=== PATIENT | female | born 1970 | race Caucasian/White ===

== ENCOUNTER 2018-12-01 14:50 | Emergency (ER) | payer MEDICARE, MEDICAID, SELFPAY ==
[2018-12-01] VITALS (28 sets, daily range): BP systolic 136–189; BP diastolic 57–134; PULSE 79–85; RESP 10–21; TEMP 36.6; O2SAT 66–99
--- NOTE | 2018-12-01 15:08 | W.ED.GENAD ---
Discharge Plan Disposition Patient Disposition: HOME Condition: Improving Discharge Details Chief Complaint: Dizzy/Sync Clinical Impression: Nausea in adult Reason For Visit: ESTHER Primary Care Provider: Chaitanya Quintero ED Provider: Chaitanya Brooks Home Meds and New Rx's Prescriptions: Continued atorvastatin 40 mg Tablet 40 mg PO DAILY RF: 0 carvedilol 12.5 mg Tablet 2 tab PO BID RF: 0 loperamide 2 mg Capsule 2 mg PO QID RF: 0 ondansetron HCl 4 mg Tablet 4 mg PO QID PRNRF: 0 sertraline 100 mg Tablet 100 mg PO DAILY RF: 0 acetaminophen [Acetaminophen Extra Strength] 500 mg Tablet 1,000 mg PO Q6H PRNRF: 0 amlodipine 10 mg Tablet 10 mg PO DAILY RF: 0 pantoprazole 40 mg Tablet,Delayed Release (Dr/Ec) 40 mg PO DAILY RF: 0 Glucagon Emergency Kit (human) 1 mg Recon Soln 1 mg SUBCUT ONCE RF: 0 gabapentin 300 mg Capsule 300 mg PO BID RF: 0 metoclopramide HCl [Reglan] 10 mg Tablet 10 mg PO BID RF: 0 Humalog KwikPen Insulin 100 unit/mL Insulin Pen 2 - 10 unit SUBCUT TID RF: 0 calcium acetate 667 mg Capsule 667 mg PO BID RF: 0 Basaglar KwikPen U-100 Insulin 100 unit/mL (3 mL) Insulin Pen 12 unit SUBCUT HS RF: 0 Discharge Instructions Instructions: Acute Nausea and Vomiting (ED) Additional Instructions: May use your prescribed Reglan or Zofran as needed for nausea. Home to rest today. Small, frequent sips of fluids. Your sodium was slightly low as we discussed and you may liberalize salt in the diet over the next 24 hours. Follow-up for dialysis on Saturday as planned. Return to the emergency department for any acute concern in the interim. Medical Decision Making 48-year-old female on thrice weekly dialysis, presents after having nausea and 2 episodes of clear, nonbloody, nonbilious emesis. She had completed her run of dialysis and had a completion of an iron infusion when the emesis started. She was given Tylenol for mild headache and Zofran. She is improved for the time of arrival. She is slightly hypertensive but afebrile, stating she feels improved. Her abdomen is soft. Screening laboratories and EKG obtained. CBC is reassuring. Her chemistries notable for borderline low sodium of 135. She is improved and feeling better. I feel it is reasonable for her to liberalize salt in the diet and to follow-up with dialysis on Saturday. She understands return precautions to the ER. Lab Data Lab results reviewed: Yes I reviewed the patient's lab results. Laboratory Results - last 24 hr 12/01/18 12/01/18 15:30 15:30 WBC 5.36 RBC 3.63 L Hgb 11.4 L Hct 33.4 L MCV 92.0 MCH 31.4 MCHC 34.1 RDW 13.5 Plt Count 293 MPV 9.5 Immature Gran % 0.2 Neutrophils % 71.9 Lymphocytes % 19.0 Monocytes % 6.2 Eosinophils % 2.1 Basophils % 0.6 Absolute Neutrophils 3.86 Absolute Lymphocytes 1.02 L Absolute Monocytes 0.33 Absolute Eosinophils 0.11 Absolute Basophils 0.03 Sodium 135 L Potassium 3.8 Chloride 95 L Carbon Dioxide 34.2 H Anion Gap 5.8 BUN 20 H Creatinine 2.59 H Estimated GFR/1.73 m2 19.57 Glucose 226 H Calcium 8.3 L Total Bilirubin 0.5 AST 16 ALT 15 Alkaline Phosphatase 125 H Total Protein 8.0 Albumin 2.8 L ECG Data Attestation: I personally reviewed and interpreted this ECG (s) as follows: Interpretation: Normal sinus rhythm, rate is 80, the QRS is narrow, there is J-point elevation in leads V1 and V2. There is no ST segment elevation, no ST segment depression HPI General Mode of arrival: EMS. Date/Time Provider Initiated Documentation: 12/01/18 14:56. Limitations to Documentation: no limitations. Information obtained by: patient. History of Present Illness 48 year old F presents to the emergency department with the chief complaint of 48-year-old female with nausea and 2 episodes of clear emesis after dialysi, Quality is described as dull, and is localized to the abdomen. Patient reports no radiation. Patient started experiencing this minute(s) and it has been now resolved. No relieving factors improve symptom(s), No exacerbating factors reported . Patient notes headaches, loss of appetite and nausea/vomiting; denies chest pain and syncope. Patient did receive the following treatments prior to arrival, other (Tylenol and Zofran. Completed her iron infusion) Related Data Home Medications Medication Instructions Recorded Confirmed Aleyda Moore-100 Insulin 12 unit SUBCUT HS 12/01/18 12/01/18 Glucagon Emergency Kit (human) 1 mg SUBCUT ONCE 12/01/18 12/01/18 Humalog KwikPen Insulin 2 - 10 unit SUBCUT TID 12/01/18 12/01/18 acetaminophen [Acetaminophen Extra 1,000 mg PO Q6H PRN 12/01/18 12/01/18 Strength] amlodipine 10 mg PO DAILY 12/01/18 12/01/18 atorvastatin 40 mg PO DAILY 12/01/18 12/01/18 calcium acetate 667 mg PO BID 12/01/18 12/01/18 carvedilol 2 tab PO BID 12/01/18 12/01/18 gabapentin 300 mg PO BID 12/01/18 12/01/18 loperamide 2 mg PO QID 12/01/18 12/01/18 metoclopramide HCl [Reglan] 10 mg PO BID 12/01/18 12/01/18 ondansetron HCl 4 mg PO QID PRN 12/01/18 12/01/18 pantoprazole 40 mg PO DAILY 12/01/18 12/01/18 sertraline 100 mg PO DAILY 12/01/18 12/01/18 Allergies Allergy/AdvReac Type Severity Reaction Status Date / Time metformin AdvReac Diarrhea Uncoded 12/01/18 15:01 General Stated Complaint: Nausea/Vomit/Diar RICHARD: 3 Review of Systems Review of Systems 6 systems reviewed and otherwise negative [facility] Social History Smoking and Tabacco status: Never Exam Narrative Exam Narrative: GEN: awake, alert, oriented 3. Pleasant, well groomed, interactive. HEAD: Normocephalic, atraumatic ENT: Mucous membranes moist, oropharynx unremarkable, External ear exam unremarkable EYES: PERRL, EOMI NECK: Full ROM, no VIDAL, no menigismus CHEST/RESP: Nontender, clear to auscultation bilateral, no wheeze/rhonchi/rales CARDIOVASCULAR: RRR, no murmur, rub alejandro. 2+ Rad pulse bilateral ABDOMEN: Soft, nontender, no mass. +Bowel sounds EXT: Full ROM, no edema, no rash. Right upper extremity fistula with positive thrill, depressed, no bleeding. Neuro: Grossly normal neurologic exam, conversant, interactive. Psych: Speech fluent, thoughts congruent, affect normal Course Vital Signs Temperature 36.6 C 12/01/18 14:56 Pulse 82 12/01/18 14:56 Respiratory Rate 16 12/01/18 14:56 Blood Pressure 186/64 H 12/01/18 14:56 Pulse Oximetry 94 L 12/01/18 14:56 Temperature 36.6 C 12/01/18 14:56 Temperature Source Skin 12/01/18 14:56 Pulse 82 12/01/18 14:56 Respiratory Rate 16 12/01/18 14:56 Respiratory Effort Non-Labored 12/01/18 14:56 Blood Pressure 186/64 H 12/01/18 14:56 Blood Pressure Position Supine 12/01/18 14:56 Pulse Oximetry 94 L 12/01/18 14:56 Oxygen Delivery Method Room Air 12/01/18 14:56 Oxygen Flow Rate 0 12/01/18 14:56 Pain Level 5 12/01/18 14:56
--- NOTE | 2018-12-01 15:11 | ED.GENADUL_ITS ---
Discharge Plan Disposition Patient Disposition: HOME Condition: Improving Discharge Details Chief Complaint: Dizzy/Sync Clinical Impression: Nausea in adult Reason For Visit: ESTHER Primary Care Provider: Chaitanya Quintero ED Provider: Chaitanya Brooks Home Meds and New Rx's Prescriptions: Continued atorvastatin 40 mg Tablet 40 mg PO DAILY RF: 0 carvedilol 12.5 mg Tablet 2 tab PO BID RF: 0 loperamide 2 mg Capsule 2 mg PO QID RF: 0 ondansetron HCl 4 mg Tablet 4 mg PO QID PRNRF: 0 sertraline 100 mg Tablet 100 mg PO DAILY RF: 0 acetaminophen [Acetaminophen Extra Strength] 500 mg Tablet 1,000 mg PO Q6H PRNRF: 0 amlodipine 10 mg Tablet 10 mg PO DAILY RF: 0 pantoprazole 40 mg Tablet,Delayed Release (Dr/Ec) 40 mg PO DAILY RF: 0 Glucagon Emergency Kit (human) 1 mg Recon Soln 1 mg SUBCUT ONCE RF: 0 gabapentin 300 mg Capsule 300 mg PO BID RF: 0 metoclopramide HCl [Reglan] 10 mg Tablet 10 mg PO BID RF: 0 Humalog KwikPen Insulin 100 unit/mL Insulin Pen 2 - 10 unit SUBCUT TID RF: 0 calcium acetate 667 mg Capsule 667 mg PO BID RF: 0 Basaglar KwikPen U-100 Insulin 100 unit/mL (3 mL) Insulin Pen 12 unit SUBCUT HS RF: 0 Discharge Instructions Instructions: Acute Nausea and Vomiting (ED) Additional Instructions: May use your prescribed Reglan or Zofran as needed for nausea. Home to rest today. Small, frequent sips of fluids. Your sodium was slightly low as we discussed and you may liberalize salt in the diet over the next 24 hours. Follow-up for dialysis on Saturday as planned. Return to the emergency department for any acute concern in the interim. Medical Decision Making 48-year-old female on thrice weekly dialysis, presents after having nausea and 2 episodes of clear, nonbloody, nonbilious emesis. She had completed her run of dialysis and had a completion of an iron infusion when the emesis started. She was given Tylenol for mild headache and Zofran. She is improved for the time of arrival. She is slightly hypertensive but afebrile, stating she feels improv ed. Her abdomen is soft. Screening laboratories and EKG obtained. CBC is reassuring. Her chemistries notable for borderline low sodium of 135. She is improved and feeling better. I feel it is reasonable for her to liberalize salt in the diet and to follow-up with dialysis on Saturday. She understands return precautions to the ER. Lab Data Lab results reviewed: Yes I reviewed the patient's lab results. Laboratory Results - last 24 hr 12/01/18 12/01/18 15:30 15:30 WBC 5.36 RBC 3.63 L Hgb 11.4 L Hct 33.4 L MCV 92.0 MCH 31.4 MCHC 34.1 RDW 13.5 Plt Count 293 MPV 9.5 Immature Gran % 0.2 Neutrophils % 71.9 Lymphocytes % 19.0 Monocytes % 6.2 Eosinophils % 2.1 Basophils % 0.6 Absolute Neutrophils 3.86 Absolute Lymphocytes 1.02 L Absolute Monocytes 0.33 Absolute Eosinophils 0.11 Absolute Basophils 0.03 Sodium 135 L Potassium 3.8 Chloride 95 L Carbon Dioxide 34.2 H Anion Gap 5.8 BUN 20 H Creatinine 2.59 H Estimated GFR/1.73 m2 19.57 Glucose 226 H Calcium 8.3 L Total Bilirubin 0.5 AST 16 ALT 15 Alkaline Phosphatase 125 H Total Protein 8.0 Albumin 2.8 L ECG Data Attestation: I personally reviewed and interpreted this ECG (s) as follows: Interpretation: Normal sinus rhythm, rate is 80, the QRS is narrow, there is J-point elevation in leads V1 and V2. There is no ST segment elevation, no ST segment depression HPI General Mode of arrival: EMS . Date/Time Provider Initiated Documentation: 12/01/18 14:56 . Limitations to Documentation: no limitations . Information obtained by: patient . History of Present Illness 48 year old F presents to the emergency department with the chief complaint of 48-year-old female with nausea and 2 episodes of clear emesis after dialysi, Quality is described as dull, and is localized to the abdomen. Patient reports no radiation. Patient started experiencing this minute(s) and it has been now resolved. No relieving factors improve symptom(s), No exacerbating factors reported . Patient notes headaches, loss of appetite and nausea/vomiting; denies chest pain and syncope. Patient did receive the following treatments prior to arrival, other (Tylenol and Zofran. Completed her iron infusion) Related Data Home Medications Medication Instructions Recorded Confirmed Basaglar KwikPen U-100 Insulin 12 unit SUBCUT HS 12/01/18 12/01/18 Glucagon Emergency Kit (human) 1 mg SUBCUT ONCE 12/01/18 12/01/18 Humalog KwikPen Insulin 2 - 10 unit SUBCUT TID 12/01/18 12/01/18 acetaminophen [Acetaminophen Extra 1,000 mg PO Q6H PRN 12/01/18 12/01/18 Strength] amlodipine 10 mg PO DAILY 12/01/18 12/01/18 atorvastatin 40 mg PO DAILY 12/01/18 12/01/18 calcium acetate 667 mg PO BID 12/01/18 12/01/18 carvedilol 2 tab PO BID 12/01/18 12/01/18 gabapentin 300 mg PO BID 12/01/18 12/01/18 loperamide 2 mg PO QID 12/01/18 12/01/18 metoclopramide HCl [Reglan] 10 mg PO BID 12/01/18 12/01/18 ondansetron HCl 4 mg PO QID PRN 12/01/18 12/01/18 pantoprazole 40 mg PO DAILY 12/01/18 12/01/18 sertraline 100 mg PO DAILY 12/01/18 12/01/18 Allergies Allergy/AdvReac Type Severity Reaction Status Date / Time metformin AdvReac Diarrhea Uncoded 12/01/18 15:01 General Stated Complaint: Nausea/Vomit/Diar RICHARD: 3 Review of Systems Review of Systems 6 systems reviewed and otherwise negative [facility] Social History Smoking and Tabacco status: Never Exam Narrative Exam Narrative: GEN: awake, alert, oriented 3. Pleasant, well groomed, interactive. HEAD: Normocephalic, atraumatic ENT: Mucous membranes moist, oropharynx unremarkable, External ear exam unremarkable EYES: PERRL, EOMI NECK: Full ROM, no VIDAL, no menigismus CHEST/RESP: Nontender, clear to auscultation bilateral, no wheeze/rhonchi/rales CARDIOVASCULAR: RRR, no murmur, rub alejandro. 2+ Rad pulse bilateral ABDOMEN: Soft, nontender, no mass. +Bowel sounds EXT: Full ROM, no edema, no rash. Right upper extremity fistula with positive thrill, depressed, no bleeding. Neuro: Grossly normal neurologic exam, conversant, interactive. Psych: Speech fluent, thoughts congruent, affect normal Course Vital Signs Temperature 36.6 C 12/01/18 14:56 Pulse 82 12/01/18 14:56 Respiratory Rate 16 12/01/18 14:56 Blood Pressure 186/64 H 12/01/18 14:56 Pulse Oximetry 94 L 12/01/18 14:56 Temperature 36.6 C 12/01/18 14:56 Temperature Source Skin 12/01/18 14:56 Pulse 82 12/01/18 14:56 Respiratory Rate 16 12/01/18 14:56 Respiratory Effort Non-Labored 12/01/18 14:56 Blood Pressure 186/64 H 12/01/18 14:56 Blood Pressure Position Supine 12/01/18 14:56 Pulse Oximetry 94 L 12/01/18 14:56 Oxygen Delivery Method Room Air 12/01/18 14:56 Oxygen Flow Rate 0 12/01/18 14:56 Pain Level 5 12/01/18 14:56
[2018-12-01] MEDS: Ondansetron O.D.T. 4 MG TABEF PO (15:20)
[2018-12-01 15:34] LABS: Abs Immature Grans 0.01 k/cumm (0.0-0.09); Absolute Basophil Count 0.03 k/cumm (0.0-0.2); Absolute Eosinophil Count 0.11 k/cumm (0.0-0.7); Absolute Lymphocyte Count 1.02 k/cumm (1.2-3.4); Absolute Monocyte Count 0.33 k/cumm (0.11-0.7); Absolute Neutrophil Count 3.86 k/cumm (1.2-6.7); Basophils % 0.6; Eosinophils % 2.1; HCT 33.4 % (36.0-46.0); HGB 11.4 g/dL (12.0-15.5); Immature Grans % 0.2; Mean Corp. HGB Concentration 34.1 g/dL (32.0-36.0); Mean Corpuscular Hemoglobin 31.4 pg (27.0-33.0); Mean Platelet Volume 9.5 fL (8.0-11.0); Monocytes % 6.2; Neutrophils % 71.9; Platelet Count 293 x1000/uL (130-400); RBC 3.63 m/cumm (4.00-5.20); RBC Distribution Width 13.5 % (11.7-14.6); White Blood Cell Count 5.36 k/cumm (4.4-10.8)
[2018-12-01 15:47] LABS: ALT 15 U/L (12-78); AST 16 U/L (15-37); Albumin 2.8 g/dL (3.4-5.0); Alkaline Phosphatase 125 U/L (46-116); Anion Gap 5.8 mmol/L (3-11); BUN 20 mg/dL (7-18); Bilirubin, Total 0.5 mg/dL (0.2-1.0); CO2 34.2 mmol/L (21.0-32.0); CREATININE 2.59 mg/dL (0.55-1.02); Calcium 8.3 mg/dL (8.5-10.1); Chloride 95 mmol/L (98-107); Estimated GFR 19.57 (mL/min/1.73m2); Glucose 226 mg/dL (70-100); Potassium 3.8 mmol/L (3.5-5.1); Sodium 135 mmol/L (136-145)
== END 2018-12-01 17:40 | disposition home or self-care (01) ==
LOC: ER 16:24
PROVIDERS: Emergency Provider Emergency Medicine; PCP Family Medicine
DX: R11.2 Nausea with vomiting, unspecified (principal); R42 Dizziness and giddiness; R51 Headache; I10 Essential (primary) hypertension; Z99.2 Dependence on renal dialysis
CPT/HCPCS: 36415; 80053; 93005; 99283; 85025; 93010

== ENCOUNTER 2019-02-18 12:12 | Emergency (ER) | payer MEDICARE, MEDICAID, SELFPAY ==
[2019-02-18] VITALS (27 sets, daily range): BP systolic 155–183; BP diastolic 74–142; PULSE 68–83; RESP 8–20; TEMP 36.8; O2SAT 92–97
--- NOTE | 2019-02-18 12:24 | DI.CT_ITS ---
SYMPTOMS/DIAGNOSIS: POST DIALYSIS, ALTERED, VOMITING CT BRAIN, NONCONTRAST: No priors. There is normal castillo-white matter differentiation. No intracranial hemorrhage, acute midline shift or mass effect is identified. The visualized paranasal sinuses are clear. The mastoid air cells are well pneumatized. The calvarium is intact. IMPRESSION: No acute intracranial process. The findings were discussed with Dr. Juarez of the Emergency Department on the date of the examination.
--- NOTE | 2019-02-18 12:26 | W.ED.GENAD ---
Discharge Plan Disposition Patient Disposition: HOME Condition: Good Discharge Details Chief Complaint: AMS/LOC Clinical Impression: Dehydration, mild, Complication of renal dialysis Primary Care Provider: Chaitanya Quintero ED Provider: Dave Juarez Home Meds and New Rx's Prescriptions: No Action atorvastatin 40 mg Tablet 40 mg PO DAILY RF: 0 carvedilol 12.5 mg Tablet 2 tab PO BID RF: 0 loperamide 2 mg Capsule 2 mg PO QID RF: 0 ondansetron HCl 4 mg Tablet 4 mg PO QID PRNRF: 0 sertraline 100 mg Tablet 100 mg PO DAILY RF: 0 acetaminophen [Acetaminophen Extra Strength] 500 mg Tablet 1,000 mg PO Q6H PRNRF: 0 amlodipine 10 mg Tablet 10 mg PO DAILY RF: 0 pantoprazole 40 mg Tablet,Delayed Release (Dr/Ec) 40 mg PO DAILY RF: 0 Glucagon Emergency Kit (human) 1 mg Recon Soln 1 mg SUBCUT ONCE RF: 0 gabapentin 300 mg Capsule 300 mg PO BID RF: 0 metoclopramide HCl [Reglan] 10 mg Tablet 10 mg PO BID RF: 0 Humalog KwikPen Insulin 100 unit/mL Insulin Pen 2 - 10 unit SUBCUT TID RF: 0 calcium acetate 667 mg Capsule 667 mg PO BID RF: 0 Basaglar KwikPen U-100 Insulin 100 unit/mL (3 mL) Insulin Pen 12 unit SUBCUT HS RF: 0 Discharge Instructions Instructions: Dehydration (ED) Additional Instructions: I expect that your symptoms are secondary to slightly too much removal of fluid at dialysis. Her welfare case worker will contact nephrology to help establish communication. If you notice any worsening of your symptoms, or any new symptoms such as vomiting, diarrhea, fever, chills, shortness of breath, chest pain, numbness, weakness, or fainting , please return immediately to the emergency department for reevaluation. Please follow up with your primary care provider as soon as possible for reassessment and reevaluation. As always, it was a pleasure participating in your medical care today. Referrals: Chaitanya Quintero [Primary Care Provider] - Medical Decision Making This is a pleasant 48-year-old female with a past medical history of being legally blind, being on dialysis, who presents today for being slightly altered while at dialysis, with associated vomiting. She has no concerning red flags of hematemesis, diarrhea, chest pain, shortness of breath. She states that she feels nauseous but denies any abdominal pain. Upon arrival to the ER the patient was acting much more her normal self. She is anxious, but shows no signs of being altered. Exam demonstrates an otherwise unremarkable physical exam aside for dry mucous membranes, but no other significant abnormalities. Neurologic exam demonstrates no focal neurologic deficits. The patient had a near identical episode less than a month ago after/at dialysis, she felt that too much fluid was pulled off at that time. Patient states that this feels just like it did last time. We will gently rehydrate, evaluate for acute cardiac or abdominal etiology, get a CT scan of the head and abdomen and reassess. 2:56 PM Patient is feeling much better after being gently rehydrated, her vomiting has completely resolved and she is tolerating p.o. well. She feels much better and is totally acting at her baseline. Family is at bedside and confirms this. Laboratory work-up demonstrates no elevated white count, normal hemoglobin for her baseline, no significant left shift. Electrolytes are relatively within normal limits. Creatinine is elevated however she is a dialysis patient. BUN is 65. Troponin is within normal limits, EKG is unchanged from prior EKGs. Urinalysis shows no evidence of urinary tract infection with no nitrites, no leuk esterase, and RBCs and WBCs within normal limits. UDS is negative. CT scan of the head, and abdomen and pelvis per Dr. Thacker of radiology demonstrate no acute process or significant abnormality. No evidence of obstruction or acute abdominal pathology. With the complete resolution of her symptomatology after gentle rehydration, and a very benign unremarkable work-up I feel that her signs and symptoms most likely consistent with slight excess in fluid removal at dialysis. As she is able to tolerate p.o. well, has no abdominal tenderness, no other complaints I do feel that she can be safely discharged home. Daughter who is at bedside has expressed some frustration with getting in contact with the adoption services manager and the adoption services manager nurse practitioner to discuss the patient's recurring issues with dialysis like this. We will send a referral for welfare case worker to help bridge this communication gap. We discussed red flags which to return the importance of repeat dialysis on Saturday. I have extensively reviewed the treatment plan and discharge instructions with the patient and their family. I have addressed all patient concerns at this time. The patient and family was made aware of what symptoms to monitor for that would warrant a return to the emergency department. Discussed the plan with the patient and family, they demonstrate verbal understanding and agreement with our assessment and plan at this time. CT BRAIN, NONCONTRAST: No priors. There is normal castillo-white matter differentiation. No intracranial hemorrhage, acute midline shift or mass effect is identified. The visualized paranasal sinuses are clear. The mastoid air cells are well pneumatized. The calvarium is intact. IMPRESSION: No acute intracranial process. The findings were discussed with Dr. Juarez of the Emergency Department on the date of the examination. [id number]: Total DLP = 0.00 mGy-cm EKG 02/18/2019 Rate 78, intervals normal, sinus rhythm, less than 1 mm of J-point elevation in V2, no ST depression, no significant T wave inversions. EKG from 12/01/2018 demonstrates the same findings. No acute change. HPI General Date/Time Provider Initiated Documentation: 02/18/19 12:14. HPI Narrative: This is a 48-year-old female with a past medical history of high cholesterol, hypertension, legally blind, diabetes, on dialysis Saturday and Saturday who presents today for evaluation of vomiting and brief altered mental status. She is brought here by EMS. Per the patient and EMS the patient was receiving her dialysis when she began to get slightly confused, altered, had few episodes of emesis without associated abdominal pain. Blood sugar was noted to be normal on EMS arrival. She had a notable improvement of her symptoms as she progressed towards the ED, and had a near return to her normal baseline mental status by the time she arrived at the ED. the patient currently admits to nausea but denies any abdominal pain. She had a near identical episode roughly a month ago, which occurred immediately after dialysis. She had a benign work-up at that time and her pain and symptoms resolved on its own during her stay in the ED without any acute process being identified. Patient states that this feels similar to that time, and feels that they had taken off too much fluid which is causing her symptoms. Patient denies any recent abdominal surgeries, she denies any change in medication, any IV or illicit drug use, recent trauma, or other sick contacts. She has no other complaints at this time. Of note she did miss dialysis Saturday which was 3 days ago secondary to mild nausea vomiting at that time. She denies any significant alcohol intake. She denies any history of cardiac disease. Related Data Home Medications Medication Instructions Recorded Confirmed Basaglar KwikPen U-100 Insulin 12 unit SUBCUT HS 12/01/18 02/18/19 Glucagon Emergency Kit (human) 1 mg SUBCUT ONCE 12/01/18 02/18/19 Humalog KwikPen Insulin 2 - 10 unit SUBCUT TID 12/01/18 02/18/19 acetaminophen [Acetaminophen Extra 1,000 mg PO Q6H PRN 12/01/18 02/18/19 Strength] amlodipine 10 mg PO DAILY 12/01/18 02/18/19 atorvastatin 40 mg PO DAILY 12/01/18 02/18/19 calcium acetate 667 mg PO BID 12/01/18 02/18/19 carvedilol 2 tab PO BID 12/01/18 02/18/19 gabapentin 300 mg PO BID 12/01/18 02/18/19 loperamide 2 mg PO QID 12/01/18 02/18/19 metoclopramide HCl [Reglan] 10 mg PO BID 12/01/18 02/18/19 ondansetron HCl 4 mg PO QID PRN 12/01/18 02/18/19 pantoprazole 40 mg PO DAILY 12/01/18 02/18/19 sertraline 100 mg PO DAILY 12/01/18 02/18/19 Allergies Allergy/AdvReac Type Severity Reaction Status Date / Time metformin AdvReac Diarrhea Uncoded 02/18/19 12:26 General Stated Complaint: AMS/LOC RICHARD: 2 Review of Systems Review of Systems All systems reviewed & are unremarkable except as noted in HPI and below PFSH Social History Smoking/Tobacco Use Status: Never Drug use: Never Substance use type: does not use Do you feel safe at home: Yes Do you feel safe in your relationship?: Yes Exam Narrative Exam Narrative: 1.Const: Well-nourished, Well-developed, appearing stated age 2.Eyes: PERRL, no conjunctival injection, and symmetrical lids. 3.ENT: Atraumatic external nose and ears. dry MM. Neck: Symmetric, trachea midline, No thyromegaly. 4.CVS: +S1/S2, No murmurs or gallops. Peripheral pulses 2+ and equal in all extremities. Brisk capillary refill in all extremities. 5.RESP: Unlabored respiratory effort. Clear to auscultation bilaterally. No wheezes rales or rhonchi 6.GI: Soft, Nontender/Nondistended, No hepatosplenomegaly. No guarding or rebound. No evidence of significant abdominal abnormality, no evidence of an acute surgical abdomen. 7.MSK: Normocephalic/Atraumatic, Extremities w/o deformity or ttp No cyanosis or clubbing, Normal movement of all extremities. Right AV fistula demonstrates palpable thrill, no evidence of significant abnormality. 8.Skin: Warm, Dry. No rashes or lesions. 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 Sensation grossly intact, no focal neurologic deficits. All 6 cardinal planes of vision are fully intact and at her baseline, taking into account that the patient is legally blind. No evidence of rotatory or vertical nystagmus. The patient demonstrated a normal [id number], good dexterity. There was no evidence of dysdiadochokinesia. Patient was able to ambulate without difficulty. There was no wide-based gait. Romberg, and [id number] are both normal on testing. Sensation was intact bilaterally as well as muscle strength bilaterally for all extremities. Patient was able to verbalize butter cup with no slurring, or miss pronunciation. 10.Psych: (AAO) x3. Appropriate mood and affect Course Vital Signs Temperature 36.8 C 02/18/19 12:23 Pulse 79 02/18/19 12:23 Respiratory Rate 16 02/18/19 12:23 Pulse Oximetry 96 02/18/19 12:23 Temperature 36.8 C 02/18/19 12:23 Temperature Source Temporal Artery Scan 02/18/19 12:23 Pulse 79 02/18/19 12:23 Respiratory Rate 20 02/18/19 12:24 Respiratory Effort Non-Labored 02/18/19 12:24 Respiratory Depth Normal 02/18/19 12:24 Respiratory Pattern Normal 02/18/19 12:24 Pulse Oximetry 96 02/18/19 12:23 Oxygen Delivery Method Room Air 02/18/19 12:23 Oxygen Flow Rate 0 02/18/19 12:23 Pain Level 0 02/18/19 12:23
--- NOTE | 2019-02-18 12:31 | ED.GENADUL_ITS ---
Discharge Plan Disposition Patient Disposition: HOME Condition: Good Discharge Details Chief Complaint: AMS/LOC Clinical Impression: Dehydration, mild, Complication of renal dialysis Primary Care Provider: Chaitanya Quintero ED Provider: Dave Juarez Home Meds and New Rx's Prescriptions: No Action atorvastatin 40 mg Tablet 40 mg PO DAILY RF: 0 carvedilol 12.5 mg Tablet 2 tab PO BID RF: 0 loperamide 2 mg Capsule 2 mg PO QID RF: 0 ondansetron HCl 4 mg Tablet 4 mg PO QID PRNRF: 0 sertraline 100 mg Tablet 100 mg PO DAILY RF: 0 acetaminophen [Acetaminophen Extra Strength] 500 mg Tablet 1,000 mg PO Q6H PRNRF: 0 amlodipine 10 mg Tablet 10 mg PO DAILY RF: 0 pantoprazole 40 mg Tablet,Delayed Release (Dr/Ec) 40 mg PO DAILY RF: 0 Glucagon Emergency Kit (human) 1 mg Recon Soln 1 mg SUBCUT ONCE RF: 0 gabapentin 300 mg Capsule 300 mg PO BID RF: 0 metoclopramide HCl [Reglan] 10 mg Tablet 10 mg PO BID RF: 0 Humalog KwikPen Insulin 100 unit/mL Insulin Pen 2 - 10 unit SUBCUT TID RF: 0 calcium acetate 667 mg Capsule 667 mg PO BID RF: 0 Basaglar KwikPen U-100 Insulin 100 unit/mL (3 mL) Insulin Pen 12 unit SUBCUT HS RF: 0 Discharge Instructions Instructions: Dehydration (ED) Additional Instructions: I expect that your symptoms are secondary to slightly too much removal of fluid at dialysis. Her case picker will contact nephrology to help establish communication. If you notice any worsening of your symptoms, or any new s ymptoms such as vomiting, diarrhea, fever, chills, shortness of breath, chest pain, numbness, weakness, or fainting , please return immediately to the emergency department for reevaluation. Please follow up with your primary care provider as soon as possible for reassessment and reevaluation. As always, it was a pleasure participating in your medical care today. Referrals: Chaitanya Quintero [Primary Care Provider] - Medical Decision Making This is a pleasant 48-year-old female with a past medical history of being legally blind, being on dialysis, who presents today for being slightly altered while at dialysis, with associated vomiting. She has no concerning red flags of hematemesis, diarrhea, chest pain, shortness of breath. She states that she feels nauseous but denies any abdominal pain. Upon arrival to the ER the patient was acting much more her normal self. She is anxious, but shows no signs of being altered. Exam demonstrates an otherwise unremarkable physical exam aside for dry mucous membranes, but no other significant abnormalities. Neurologic exam demonstrates no focal neurologic deficits. The patient had a near identical episode less than a month ago after/at dialysis, she felt that too much fluid was pulled off at that time. Patient states that this feels just like it did last time. We will gently rehydrate, evaluate for acute cardiac or abdominal etiology, get a CT scan of the head and abdomen and reassess. 2:56 PM Patient is feeling much better after being gently rehydrated, her vomiting has completely resolved and she is tolerating p.o. well. She feels much better and is totally acting at her baseline. Family is at bedside and confirms this. Laboratory work-up demonstrates no elevated white count, normal hemoglobin for her baseline, no significant left shift. Electrolytes are relatively within normal limits. Creatinine is elevated however she is a dialysis patient. BUN is 65. Troponin is within normal limits, EKG is unchanged from prior EKGs. Urinalysis shows no evidence of urinary tract infection with no nitrites, no leuk esterase, and RBCs and WBCs within normal limits. UDS is negative. CT scan of the head, and abdomen and pelvis per Dr. Thacker of radiology demonstrate no acute process or significant abnormality. No evidence of obstruction or acute abdominal pathology. With the complete resolution of her symptomatology after gentle rehydration, and a very benign unremarkable work-up I feel that her signs and symptoms most likely consistent with slight excess in fluid removal at dialysis. As she is able to tolerate p.o. well, has no abdominal tenderness, no other complaints I do feel that she can be safely discharged home. Daughter who is at bedside has expressed some frustration with getting in contact with the goat herder and the goat herder nurse practitioner to discuss the patient's recurring issues with dialysis like this. We will send a referral for case picker to help bridge this communication gap. We discussed red flags which to return the importance of repeat dialysis on Saturday. I have extensively reviewed the treatment plan and discharge instructions with the patient and their family. I have addressed all patient concerns at this time. The patient and family was made aware of what symptoms to monitor for that would warrant a return to the emergency department. Discussed the plan with the patient and family, they demonstrate verbal understanding and agreement with our assessment and plan at this time. CT BRAIN, NONCONTRAST: No priors. There is normal castillo-white matter differentiation. No intracranial hemorrhage, acute midline shift or mass effect is identified. The visualized paranasal sinuses are clear. The mastoid air cells are well pneumatized. The calvarium is intact. IMPRESSION: No acute intracranial process. The findings were discussed with Dr. Juarez of the Emergency Department on the date of the examination. [id number]: Total DLP = 0.00 mGy-cm EKG 02/18/2019 Rate 78, intervals normal, sinus rhythm, less than 1 mm of J-point elevation in V2, no ST depression, no significant T wave inversions. EKG from 12/01/2018 demonstrates the same findings. No acute change. HPI General Date/Time Provider Initiated Documentation: 02/18/19 12:14 . HPI Narrative: This is a 48-year-old female with a past medical history of high cholesterol, hypertension, legally blind, diabetes, on dialysis Saturday and Saturday who presents today for evaluation of vomiting and brief altered mental status. She is brought here by EMS. Per the patient and EMS the patient was receiving her dialysis when she began to get slightly confused, altered, had few episodes of emesis without associated abdominal pain. Blood sugar was noted to be normal on EMS arrival. She had a notable improvement of her symptoms as she progressed towards the ED, and had a near return to her normal baseline mental status by the time she arrived at the ED. the patient currently admits to nausea but denies any abdominal pain. She had a near identical episode roughly a month ago, which occurred immediately after dialysis. She had a benign work- up at that time and her pain and symptoms resolved on its own during her stay in the ED without any acute process being identified. Patient states that this feels similar to that time, and feels that they had taken off too much fluid which is causing her symptoms. Patient denies any recent abdominal surgeries, she denies any change in medication, any IV or illicit drug use, recent trauma, or other sick contacts. She has no other complaints at this time. Of note she did miss dialysis Saturday which was 3 days ago secondary to mild nausea vomiting at that time. She denies any significant alcohol intake. She denies any history of cardiac disease. Related Data Home Medications Medication Instructions Recorded Confirmed Basaglar KwikPen U-100 Insulin 12 unit SUBCUT HS 12/01/18 02/18/19 Glucagon Emergency Kit (human) 1 mg SUBCUT ONCE 12/01/18 02/18/19 Humalog KwikPen Insulin 2 - 10 unit SUBCUT TID 12/01/18 02/18/19 acetaminophen [Acetaminophen Extra 1,000 mg PO Q6H PRN 12/01/18 02/18/19 Strength] amlodipine 10 mg PO DAILY 12/01/18 02/18/19 atorvastatin 40 mg PO DAILY 12/01/18 02/18/19 calcium acetate 667 mg PO BID 12/01/18 02/18/19 carvedilol 2 tab PO BID 12/01/18 02/18/19 gabapentin 300 mg PO BID 12/01/18 02/18/19 loperamide 2 mg PO QID 12/01/18 02/18/19 metoclopramide HCl [Reglan] 10 mg PO BID 12/01/18 02/18/19 ondansetron HCl 4 mg PO QID PRN 12/01/18 02/18/19 pantoprazole 40 mg PO DAILY 12/01/18 02/18/19 sertraline 100 mg PO DAILY 12/01/18 02/18/19 Allergies Allergy/AdvReac Type Severity Reaction Status Date / Time metformin AdvReac Diarrhea Uncoded 02/18/19 12:26 General Stated Complaint: AMS/LOC RICHARD: 2 Review of Systems Review of Systems All systems reviewed & are unremarkable except as noted in HPI and below PFSH Social History Smoking/Tobacco Use Status: Never Drug use: Never Substance use type: does not use Do you feel safe at home: Yes Do you feel safe in your relationship?: Yes Exam Narrative Exam Narrative: 1.Const: Well-nourished, Well-developed, appearing stated age 2.Eyes: PERRL, no conjunctival injection, and symmetrical lids. 3.ENT: Atraumatic external nose and ears. dry MM. Neck: Symmetric, trachea midline, No thyromegaly. 4.CVS: +S1/S2, No murmurs or gallops. Peripheral pulses 2+ and equal in all extremities. Brisk capillary refill in all extremities. 5.RESP: Unlabored respiratory effort. Clear to auscultation bilaterally. No wheezes rales or rhonchi 6.GI: Soft, Nontender/Nondistended, No hepatosplenomegaly. No guarding or rebound. No evidence of significant abdominal abnormality, no evidence of an acute surgical abdomen. 7.MSK: Normocephalic/Atraumatic, Extremities w/o deformity or ttp No cyanosis or clubbing, Normal movement of all extremities. Right AV fistula demonstrates palpable thrill, no evidence of significant abnormality. 8.Skin: Warm, Dry. No rashes or lesions. 9.Neuro: nurse researcher II-XII grossly intact. Sensation grossly intact, no focal neurologic deficits. All 6 cardinal planes of vision are fully intact and at her baseline, taking into account that the patient is legally blind. No evidence of rotatory or vertical nystagmus. The patient demonstrated a normal [id number], good dexterity. There was no evidence of dysdiadochokinesia. Patient was able to ambulate without difficulty. There was no wide-based gait. Romberg, and [id number] are both normal on testing. Sensation was intact bilaterally as well as muscle strength bilaterally for all extremities. Patient was able to verbalize butter cup with no slurring, or miss pronunciation. 10.Psych: (AAO) x3. Appropriate mood and affect Course Vital Signs Temperature 36.8 C 02/18/19 12:23 Pulse 79 02/18/19 12:23 Respiratory Rate 16 02/18/19 12:23 Pulse Oximetry 96 02/18/19 12:23 Temperature 36.8 C 02/18/19 12:23 Temperature Source Temporal Artery Scan 02/18/19 12:23 Pulse 79 02/18/19 12:23 Respiratory Rate 20 02/18/19 12:24 Respiratory Effort Non-Labored 02/18/19 12:24 Respiratory Depth Normal 02/18/19 12:24 Respiratory Pattern Normal 02/18/19 12:24 Pulse Oximetry 96 02/18/19 12:23 Oxygen Delivery Method Room Air 02/18/19 12:23 Oxygen Flow Rate 0 02/18/19 12:23 Pain Level 0 02/18/19 12:23
[2019-02-18] MEDS: Ondansetron 4 MG/2 ML VIAL IVP (12:50)
--- NOTE | 2019-02-18 12:57 | DI.CT_ITS ---
SYMPTOMS/DIAGNOSIS: UNREMITTING VOMITING, GENERALIZED ABDOMINAL PAIN CT SCAN OF THE ABDOMEN AND PELVIS: CT scan of the abdomen and pelvis was performed following the uneventful administration of intravenous contrast material. There are no priors for comparison. Dependent atelectatic changes are seen in the lung bases. The liver is normal in size. No discrete hepatic mass is seen. The portal, superior mesenteric and splenic veins are patent. The gallbladder is negative. There is no biliary ductal dilatation. The pancreas and peripancreatic soft tissues are unremarkable, as are the spleen and adrenal glands. The kidneys show symmetric enhancement. Calcifications in the renal pelves appear to be vascular in nature. No evidence of obstructive uropathy is seen. The urinary bladder is intact. There is apparent thickening of the wall of the urinary bladder. While this may be due to decreased distention of the bladder, the possibility of a bladder inflammatory infectious process cannot be excluded. The patient appears to be status post hysterectomy. There is atherosclerosis of the abdominal aorta, but no aneurysmal dilatation is seen. Mildly enlarged lymph nodes are seen in the left periaortic region, the largest measures 1.2 cm in its short axis. No significant abdominal or pelvic pneumoperitoneum or ascites is present. The bowel shows no evidence of obstruction or inflammation. No findings to suggest an acute appendicitis are present. Degenerative changes are seen in the spine, particularly at the L5-S1 disc level. IMPRESSION: 1. Mild apparent thickening of the wall of the urinary bladder. While this may be due to underdistention, the possibility of an infectious or inflammatory cystitis cannot be excluded. Please correlate clinically. 2. Mildly enlarged lymph nodes in the retroperitoneum. These are nonspecific. 3. Extensive atherosclerosis. The findings were discussed with the Emergency Department on the date of the examination.
[2019-02-18 13:06] LABS: Abs Immature Grans 0.01 k/cumm (0.0-0.09); Absolute Basophil Count 0.03 k/cumm (0.0-0.2); Absolute Eosinophil Count 0.19 k/cumm (0.0-0.7); Absolute Lymphocyte Count 1.15 k/cumm (1.2-3.4); Absolute Monocyte Count 0.42 k/cumm (0.11-0.7); Basophils % 0.6; Eosinophils % 3.6; HCT 33.9 % (36.0-46.0); HGB 11.5 g/dL (12.0-15.5); Immature Grans % 0.2; Lymphocytes % 21.7; Mean Corp. HGB Concentration 33.9 g/dL (32.0-36.0); Mean Corpuscular Hemoglobin 30.7 pg (27.0-33.0); Mean Corpuscular Volume 90.4 fL (80-95); Mean Platelet Volume 9.8 fL (8.0-11.0); Monocytes % 7.9; Platelet Count 277 x1000/uL (130-400); RBC 3.75 m/cumm (4.00-5.20); RBC Distribution Width 12.8 % (11.7-14.6)
[2019-02-18] MEDS: Normal Saline 500 ML 1000 ML IV (13:10)
[2019-02-18 13:16] LABS: Ammonia 16 umol/L (11-32)
[2019-02-18 13:18] LABS: ALT 17 U/L (12-78); AST 13 U/L (15-37); Alkaline Phosphatase 107 U/L (46-116); Anion Gap 7.3 mmol/L (3-11); BUN 65 mg/dL (7-18); Bilirubin, Total 0.5 mg/dL (0.2-1.0); CO2 30.7 mmol/L (21.0-32.0); Calcium 8.7 mg/dL (8.5-10.1); Chloride 96 mmol/L (98-107); Estimated GFR 6.88 (mL/min/1.73m2); Glucose 82 mg/dL (70-100); Potassium 4.7 mmol/L (3.5-5.1); Sodium 134 mmol/L (136-145)
[2019-02-18 13:21] LABS: CREATININE 6.41 mg/dL (0.55-1.02)
[2019-02-18 13:22] LABS: Bilirubin Negative (Negative); Blood Moderate (Negative); Clarity Cloudy; Glucose 500 mg/dL (Negative); Ketones Negative (Negative); Leukocyte Esterase Negative (Negative); Nitrite Negative (Negative); Urobilinogen 0.2 EU/dL (Up TO 0.2)
[2019-02-18 13:22] LABS: Lipase 339 U/L (73-393); Troponin I 0.03 ng/mL (0.00-0.06)
[2019-02-18 13:44] LABS: Bacteria Moderate HPF (Negative); C & S Indicated? No/Sq. Contamination; Crystals Negative HPF (Negative); Epithelial Cells Many HPF (Negative); Mucus Negative (Negative)
[2019-02-18 13:46] LABS: *AMPHETAMINES SCREEN URINE Negative (Negative); *BARBITURATES SCREEN URINE Negative (Negative); *BENZODIAZEPINES SCREEN URINE Negative (Negative); Cannabinoids THC Negative (Negative); Cocaine Screen,Urine Negative (Negative); METHADONE URINE SCREEN Negative (Negative); OPIATES URINE SCREEN Negative (Negative); Tricyclic Antidepressants Negative (Negative)
[2019-02-18] MEDS: Omnipaque 350 MG/ML 100 ML BTL IJ (14:31)
[2019-02-18] MEDS: Acetaminophen 500 MG TAB (14:45)
--- NOTE | 2019-02-19 12:08 | CMPROGNOTE_ITS ---
Care Management Progress Note 02/19-02/19-Laurent was seen in the ED late yesterday and wanted to speak with someone about nephrology and how to contact nephrology. Laurent is a dialysis patient in [facility] but doesn't know when the providers are coming. This CM reached out to laurent. The phone does not have voice mail set up so unable to leave a message.
== END 2019-02-18 15:51 | disposition home or self-care (01) ==
PROVIDERS: Emergency Provider Student in an Organized Health Care Education/Training Program; PCP Family Medicine
DX: E86.0 Dehydration (principal); Y84.1 Kidney dialysis as the cause of abnormal reaction of the patient, or of later complication, without mention of misadventure at the time of the procedure; R11.2 Nausea with vomiting, unspecified; Z99.2 Dependence on renal dialysis; E11.22 Type 2 diabetes mellitus with diabetic chronic kidney disease; N18.9 Chronic kidney disease, unspecified; I12.0 Hypertensive chronic kidney disease with stage 5 chronic kidney disease or end stage renal disease; H54.8 Legal blindness, as defined in USA; Z79.4 Long term (current) use of insulin
CPT/HCPCS: 36415; 80053; 80307; 83690; 93005; 96361; 96374; 99285; 70450; 74177; 81003; 81015; 82140; 84484; 85025; 93010; J3490